=== PATIENT | female | born 1980 ===

== ENCOUNTER 2018-10-20 22:42 | Emergency (ER) | payer OTHER ==
[2018-10-20 22:43] VITALS: BMI 28.3
[2018-10-20] MEDS ORDERED: Sodium Chloride 0.9% 1,000 ML IV STA (23:52)
--- NOTE | 2018-10-21 00:06 | ED PDOC ---
HPI: Abdomen Time Seen by Provider: 10/20/18 23:34 Chief Complaint (Nursing): Abdominal Pain Chief Complaint (Provider): Abdominal Pain History Per: Patient History/Exam Limitations: no limitations Onset/Duration Of Symptoms: Hrs Current Symptoms Are (Timing): Still Present Location Of Pain/Discomfort: RUQ, Epigastric, LUQ Additional Complaint(s): 37 y/o female with no significant PMHx presents to the ED for evaluation of abdominal pain, onset this afternoon. Patient reports abdominal pain is located with in the RUQ, LUQ and epigastric area. Patient states pain began after eating something followed by one episode of vomiting. Patient states pain has continued since. Patient reports of taking Advil for symptom relief with no improvement. Otherwise, patient denies abnormal stool, urinary problems and fevers. 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 PMD: None Past Medical History Reviewed: Historical Data, Nursing Documentation, Vital Signs Vital Signs: Last Vital Signs Temp 98.3 F 10/20/18 22:44 Pulse 75 10/20/18 22:44 Resp 16 10/20/18 22:44 BP 142/99 H 10/20/18 22:44 Pulse Ox 96 10/20/18 22:44 - Medical History PMH: No Chronic Diseases - Surgical History Surgical History: No Surg Hx - Family History Family History: States: Unknown Family Hx - Home Medications Home Medications: Ambulatory Orders Medication Instructions Recorded Oseltamivir Cap [Tamiflu] 75 mg PO BID #10 cap 10/20/16 Nitrofurantoin Macrocrystals 100 mg PO BID 5 Days cap 10/21/18 [Macrobid] Omeprazole 20 mg PO DAILY #30 jaime. 10/21/18 - Allergies Allergies/Adverse Reactions: Allergies Allergy/AdvReac Type Severity Reaction Status Date / Time No Known Allergies Allergy Verified 10/20/18 22:44 Review of Systems ROS Statement: Except As Marked, All Systems Reviewed And Found Negative Constitutional: Negative for: Fever Gastrointestinal: Positive for: Abdominal Pain (Epigastric, RUQ and LUQ pain). Negative for: Diarrhea, Constipation Genitourinary Female: Negative for: Dysuria, Frequency, Hematuria Physical Exam - Reviewed Nursing Documentation Reviewed: Yes Vital Signs Reviewed: Yes - Physical Exam Appears: Positive for: Uncomfortable Head Exam: Positive for: ATRAUMATIC, NORMOCEPHALIC Skin: Positive for: Normal Color, Warm, Dry Eye Exam: Positive for: Normal appearance, EOMI, PERRL Neck: Positive for: Normal, Painless ROM Cardiovascular/Chest: Positive for: Regular Rate, Rhythm. Negative for: Murmur Respiratory: Positive for: Normal Breath Sounds. Negative for: Respiratory Distress Gastrointestinal/Abdominal: Positive for: Soft, Tenderness (Epigastric, RUQ and LUQ tenderness). Negative for: Guarding, Rebound Back: Positive for: Normal Inspection. Negative for: L CVA Tenderness, R CVA Tenderness, Vertebral Tenderness Extremity: Positive for: Normal ROM. Negative for: Pedal Edema, Deformity Neurologic/Psych: Positive for: Alert, Oriented - Laboratory Results Result Diagrams: 10/21/18 00:10 10/21/18 00:10 - ECG O2 Sat by Pulse Oximetry: 96 (RA) Pulse Ox Interpretation: Normal Medical Decision Making Medical Decision Making: Time: 2351 A/P: 37 y/o female with abdominal pain -- Differentials include but not limited to gastritis, peptic ulcer disease, biliary disease and pancreatitis. -- Patient is stable otherwise well appearing. -- BMP -- Liver Profile -- ED Urine -- ED Urine Dipstick -- CBC -- Sodium Chloride 0.9% IV 1000 mls/hr -- Pepcid 20 mg IVP -- Zofran Inj 4 mg IVP Time: 211 -- CT Abd/Pelvis Time: 333 CT RESULTS FINDINGS: LUNG BASES: The lung bases appear clear. No pleural effusions are seen. LIVER: There is diffuse hepatic hypoattenuation compatible with fatty infiltration. The liver is enlarged, 22 cm. GALLBLADDER AND BILE DUCTS: The gallbladder appears within normal limits. No radioopaque gallstones are seen. No biliary ductal dilatation is evident. PANCREAS: Unremarkable. SPLEEN: Unremarkable. ADRENAL GLANDS: Unremarkable. KIDNEYS, URETERS, AND BLADDER: The kidneys appear within normal limits. There is no hydronephrosis or hydroureter. No urinary calculi are seen. STOMACH AND BOWEL: Unremarkable appearance of the stomach and bowel. No evidence of bowel obstruction. No evidence suggesting enteritis or colitis. APPENDIX: No evidence of acute appendicitis on CT examination. PERITONEUM: No free fluid. No free air. LYMPH NODES: No lymphadenopathy is evident. REPRODUCTIVE: IUDi is in place. The uterus and ovaries are WNL. VASCULATURE: No evidence of abdominal aortic aneurysm. BONES: No aggressive appearing osseous lesion. No acute osseous pathology evident. IMPRESSION: No acute pathology. Fatty liver. Electronically signed on Oct 21, 2018 3:34:27 AM EST by: Onofre Mcdaniel M.D., MBA Certified By [facility] & [facility] Fellowship Trained MRI and CT Specialist Time: 347 Plan: -- Urine Culture -- Urinalysis Time: 534 -- On re-evaluation, patient reports of feeling better. Patient advised to a diet modification. Patient given a referral to clinic for further management. Patient is well appearing upon discharge home. Scribe Attestation: Documented by Svetlana Colon, acting as a scribe for Chad Mckeon MD. Provider Scribe Attestation: All medical record entries made by the Scribe were at my direction and personally dictated by me. I have reviewed the chart and agree that the record accurately reflects my personal performance of the history, physical exam, medical decision making, and the department course for this patient. I have also personally directed, reviewed, and agree with the discharge instructions and disposition. Disposition - Clinical Impression Clinical Impression: Gastritis, UTI (urinary tract infection) Counseled Patient/Family Regarding: Studies Performed, Diagnosis, Need For Followup, Rx Given - Disposition Referrals: [facility] [Outside] Disposition: Routine/Home Disposition Time: 05:35 Condition: STABLE Prescriptions: Nitrofurantoin Macrocrystals [Macrobid] 100 mg PO BID 5 Days cap Omeprazole 20 mg PO DAILY #30 capsule.dr Instructions: Urinary Tract Infections in Adults, Gastritis (DC) Forms: [facility] (Mongolian) Print Language: FINNISH
[2018-10-21 00:22] LABS: HEMOGLOBIN 13.2 g/dL (12.0-16.0); MEAN CELL VOLUME 89.3 fl (81.0-99.0); MEAN CORPUSCULAR HEMOGLOBIN 30.1 pg (27.0-31.0); MEAN CORPUSCULAR HGB CONC 33.7 g/dL (33.0-37.0); RBC 4.4 Mil/uL (3.80-5.20); RED CELL DISTRIBUTION WIDTH 13.1 % (11.5-14.5); WHITE BLOOD COUNT 8.6 K/uL (4.8-10.8)
[2018-10-21 00:36] LABS: ALB/GLOB RATIO 1.3 (1.0-2.1); ALBUMIN 4.2 g/dL (3.5-5.0); ALT/SGPT 153 U/L (9-52); AST/SGOT 111 U/L (14-36); BILIRUBIN,DIRECT 0.1 mg/ml (0.0-0.4); BLOOD UREA NITROGEN 9 mg/dl (7-17); CALCIUM 9.8 mg/dL (8.4-10.2); GFR NON-AFRICAN AMERICAN > 60
[2018-10-21] MEDS ORDERED: Iohexol 300 100 ML IJ ONE (02:35)
[2018-10-21] MEDS ORDERED: Sodium Chloride 0.9% 50 ML IV ONE (02:36)
[2018-10-21 05:09] LABS: SQUAMOUS EPITHIAL 2 /hpf (0-5); URINE BACTERIA RARE (<OCC); URINE BILIRUBIN NEGATIVE (NEGATIVE); URINE BLOOD NEGATIVE (NEGATIVE); URINE CLARITY CLOUDY (Clear); URINE COLOR YELLOW (YELLOW); URINE GLUCOSE (UA) NEG (NEGATIVE); URINE LEUKOCYTE ESTERASE MOD Leu/uL (Negative); URINE PROTEIN NEGATIVE (NEGATIVE); URINE UROBILINOGEN 0.2-1.0 mg/dL (0.2-1.0)
[2018-10-21 06:03] VITALS: BP 110/76; PULSE 69; RESP 18; TEMP 97.9
[2018-10-21 06:05] VITALS: O2SAT 96
--- NOTE | 2018-10-21 11:53 | CT ---
Date of service: 10/21/2018 PROCEDURE: CT Abdomen and Pelvis with contrast HISTORY: upper abd pain COMPARISON: None. TECHNIQUE: Following the intravenous administration of iodinated contrast material, a CT examination of the abdomen and pelvis performed from the domes of the diaphragms to the symphysis pubis with reformatted datasets provided in axial, sagittal and coronal planes. Oral contrast was not administered as per referring physician request. Coronal and sagittal reformats were generated. contrast dose: Omnipaque 300, 90 cc Radiation dose: Total exam DLP = 512.84 mGy-cm. This CT exam was performed using one or more of the following dose reduction techniques: Automated exposure control, adjustment of the mA and/or kV according to patient size, and/or use of iterative reconstruction technique. FINDINGS: LOWER THORAX: Unremarkable. LIVER: Diminished attenuation throughout the liver is extensive and compatible with hepatic steatosis. No focal mass or intrahepatic biliary dilatation appreciated limited focal fatty sparing seen surrounding the gallbladder fossa. GALLBLADDER AND BILE DUCTS: Gallbladder is mildly distended with cholelithiasis or sludge not excluded in the central lumen. No mural thickening or pericholecystic fluid collection identified throughout. Extrahepatic biliary duct pattern appears unremarkable. PANCREAS: Unremarkable. No gross lesion or ductal dilatation. SPLEEN: Unremarkable. ADRENALS: Unremarkable. No mass. KIDNEYS AND URETERS: Unremarkable. No hydronephrosis. No solid mass. VASCULATURE: Unremarkable. No aortic aneurysm. No aortic atherosclerotic calcification or mural plaque present. BOWEL: Stomach is collapsed. No bowel obstruction. Moderate fecal loading seen the right hemicolon with limited residual otherwise present throughout the remainder. APPENDIX: Normal appendix. PERITONEUM: Tiny umbilical hernia containing only fat. No free intrarenal gas collection. No ascites or mesenteric edema identified. LYMPH NODES: Unremarkable. No enlarged lymph nodes. BLADDER: Largely decompressed and nonfocal appearing. REPRODUCTIVE: Intrauterine device identified in utero. No suspicious adnexal findings. BONES: No acute fracture. OTHER FINDINGS: None. IMPRESSION: Extensive hepatic steatosis with examination otherwise unremarkable. Concordant preliminary report from [facility], 10/21/2018 3:34 a.m..
== END 2018-10-21 06:03 | disposition home or self-care (01) ==
LOC: H.ER 22:42
DX: N39.0 Urinary tract infection, site not specified (principal); K29.70 Gastritis, unspecified, without bleeding
CPT/HCPCS: 74177; 80048; 80076; 81003; 81025; 83690; 85027; 87086; 87181; 96374; 96375; 99284; J2270; J2405; J7030; Q9967

== ENCOUNTER 2019-01-30 05:59 | Emergency (ER) | payer OTHER ==
[2019-01-30 05:59] VITALS: BMI 28.3
--- NOTE | 2019-01-30 07:19 | ED PDOC ---
History of Present Illness History of Present Illness: 38yo female, otherwise well, comes to ER reporting fever, cough, rhinorrhea, bodyaches, and headache for the past 3 days. Patient also reports chest pain due to cough, but denies any shortness of breath. No additional medical complaitns. PMD: [facility] HPI: Influenza Time Seen by Provider: 01/30/19 07:09 Chief Complaint: Flu-like Symptoms Chief Complaint (Provider): Cough, cold, congestion History Per: Patient Exam Limitations: no limitations Onset/Duration Of Symptoms: Days (3) Symptoms include: headache, bodyaches, cough, nasal congestion Past Medical History Reviewed: Historical Data, Nursing Documentation, Vital Signs Vital Signs: Last Vital Signs Temp 99.2 F 01/30/19 06:21 Pulse 98 H 01/30/19 06:21 Resp 18 01/30/19 06:21 BP 112/77 01/30/19 06:21 Pulse Ox 98 01/30/19 06:21 - Medical History PMH: No Chronic Diseases - Surgical History Surgical History: No Surg Hx - Family History Family History: States: No Known Family Hx, Unknown Family Hx - Home Medications Home Medications: Ambulatory Orders Medication Instructions Recorded Oseltamivir Cap [Tamiflu] 75 mg PO BID #10 cap 10/20/16 Nitrofurantoin Macrocrystals 100 mg PO BID 5 Days cap 10/21/18 [Macrobid] Omeprazole 20 mg PO DAILY #30 capsule. 10/21/18 Benzonatate [Tessalon Perle] 100 mg PO Q8 #12 capsule 01/30/19 Oseltamivir Cap [Tamiflu] 75 mg PO BID #10 cap 01/30/19 - Allergies Allergies/Adverse Reactions: Allergies Allergy/AdvReac Type Severity Reaction Status Date / Time No Known Allergies Allergy Verified 10/20/18 22:44 Review of Systems ROS Statement: Except As Marked, All Systems Reviewed And Found Negative Constitutional: Positive for: Fever ENT: Positive for: Nose Congestion Cardiovascular: Positive for: Chest Pain (with cough) Respiratory: Positive for: Cough. Negative for: Shortness of Breath Physical Exam - Reviewed Nursing Documentation Reviewed: Yes Vital Signs Reviewed: Yes (afebrile) - Physical Exam Appears: Positive for: Non-toxic, No Acute Distress Head Exam: Positive for: ATRAUMATIC, NORMAL INSPECTION, NORMOCEPHALIC Skin: Positive for: Normal Color Eye Exam: Positive for: EOMI, PERRL ENT: Negative for: Pharyngeal Erythema Neck: Positive for: Normal, Supple Cardiovascular/Chest: Positive for: Regular Rate, Rhythm. Negative for: Murmur, Tachycardia Respiratory: Positive for: Normal Breath Sounds. Negative for: Rales, Rhonchi, Wheezing, Respiratory Distress Gastrointestinal/Abdominal: Positive for: Soft Back: Positive for: Normal Inspection Extremity: Positive for: Normal ROM. Negative for: Pedal Edema Neurological/Psych: Positive for: Awake, Alert, Oriented (x 3) Medical Decision Making Medical Decision Makinyo w/ flu like symptoms x 3 days Plan: -- Rapid flu Scribe Attestation: Documented by Jayna Vieira, acting as a scribe for Augusto Copeland MD Provider Scribe Attestation: All medical record entries made by the Scribe were at my direction and personally dictated by me. I have reviewed the chart and agree that the record accurately reflects my personal performance of the history, physical exam, medical decision making, and the department course for this patient. I have also personally directed, reviewed, and agree with the discharge instructions and disposition. - ECG O2 Sat by Pulse Oximetry: 98 Disposition - Clinical Impression Clinical Impression: Influenza-like symptoms - Patient ED Disposition Is Patient to be Admitted: No Counseled Patient/Family Regarding: Studies Performed, Diagnosis, Need For Followup, Rx Given - Disposition Referrals: [facility] [Outside] Disposition: Routine/Home Disposition Time: 07:25 Condition: FAIR Prescriptions: Benzonatate [Tessalon Perle] 100 mg PO Q8 #12 capsule Oseltamivir Cap [Tamiflu] 75 mg PO BID #10 cap Instructions: Flu Forms: [employer] (Uzbek) Print Language: UZBEK
[2019-01-30 08:01] VITALS: RESP 20
[2019-01-30 08:25] VITALS: BP 135/70; PULSE 100; TEMP 98.3; O2SAT 97
== END 2019-01-30 08:20 | disposition home or self-care (01) ==
LOC: H.ER 05:59
DX: J11.1 Influenza due to unidentified influenza virus with other respiratory manifestations (principal)